=== PATIENT | male | born 1990 | race Caucasian/White ===

== ENCOUNTER 2019-02-16 11:09 | Emergency (ER) | payer BC ==
[~2019-02-16] VITALS: Ht 177.8 cm; Wt 98.4 kg
[2019-02-16 11:25] VITALS: Ht 177.8 cm; Wt 98.4 kg
[2019-02-16 13:44] VITALS: BP 140/86
== END 2019-02-16 13:44 | disposition home or self-care (01) ==
LOC: ED 11:09
DX: R07.89 Other chest pain (principal); F17.210 Nicotine dependence, cigarettes, uncomplicated